=== PATIENT | male | born 1970 | race Caucasian/White ===

== ENCOUNTER → 2018-07-28 | Outpatient (CLI) | payer BC ==
--- NOTE | 2018-07-28 14:36 | REP ---
RIGHT ANKLE: FOUR VIEWS. HISTORY: Pain. FINDINGS: Four views of the right ankle show intact ankle mortise. There is diffuse soft tissue swelling medially and laterally as well as anteriorly. No fracture or erosive changes seen. There is some flattening of Bohler angle at the superior aspect of the calcaneus suggestive of an old calcaneal fracture. IMPRESSION: Diffuse swelling. No acute bony abnormality. Possible old calcaneal fracture with subsequent flattening. Electronically Signed by Chucho iEd MD 07/28/2018 08:42 P
--- NOTE | 2018-07-28 14:36 | REP ---
Right foot: Four views. History: Pain. Findings: Four views of the right foot demonstrate overall normal mineralization. Bones, joints, and soft tissues are unremarkable. Subtle flattening of the calcaneus is seen on lateral film raising question of an old calcaneal fracture. There is no evidence of tarsal coalition. Impression: Findings suggestive of old healed calcaneal fracture with subsequent flattening. Otherwise negative radiographs of the right foot. No acute bony abnormality. Electronically Signed by Chucho Eid MD 07/28/2018 08:43 P
== END ==
LOC: M WUC 12:36
PROVIDERS: ATTEND Physician Assistant
DX: M79.9 Soft tissue disorder, unspecified (principal)

== ENCOUNTER → 2020-03-16 | Outpatient (CLI) | payer BC ==
[2020-03-16 16:31] LABS: BLOOD UREA NITROGEN 8 MG/DL (7-18); CALCIUM LEVEL 9.3 MG/DL (8.5-10.1); CARBON DIOXIDE LEVEL 28 MEQ/L (21-32); CHLORIDE LEVEL 105 MEQ/L (98-107); CREATININE FOR GFR 1.06 MG/DL (0.70-1.30); GLOMERULAR FILTRATION RATE > 60.0 (>60); GLUCOSE, FASTING 91 MG/DL (70-100); POTASSIUM SERUM 4.5 MEQ/L (3.5-5.1); SODIUM LEVEL 138 MEQ/L (136-145); URIC ACID 6.8 MG/DL (3.5-7.2)
== END ==
LOC: M WUC 11:19
PROVIDERS: ATTEND Nurse Practitioner Family
DX: M10.072 Idiopathic gout, left ankle and foot (principal)

== ENCOUNTER → 2021-11-21 | Outpatient (CLI) | payer BC | LOC: M LABSMTC 10:03 | PROVIDERS: ATTEND Anesthesiology | DX: Z11.52 Encounter for screening for COVID-19 (principal) ==

== ENCOUNTER 2021-11-26 11:31 | Day surgery (SDC) | payer BC ==
[~2021-11-26] VITALS: Ht 170.2 cm; Wt 89.8 kg
[~2021-11-26 11:31] MED LIST: NS 1,000 ML IV ONE
[2021-11-26] MEDS ORDERED: LIDOCAINE 2% 100MG/5ML SDV (FOR ANES.) As Ordered ONE (12:11)
[2021-11-26] MEDS ORDERED: propofoL 200 MG/20 ML VIAL As Ordered ONE ×2 (12:11→12:54)
[2021-11-26 13:20] VITALS: BP 127/79
== END 2021-11-26 13:24 | disposition home or self-care (01) ==
LOC: M OPP 11:31
PROVIDERS: ATTEND Internal Medicine Gastroenterology
DX: Z12.11 Encounter for screening for malignant neoplasm of colon (principal); K64.0 First degree hemorrhoids; I10 Essential (primary) hypertension; Z79.02 Long term (current) use of antithrombotics/antiplatelets; Z79.899 Other long term (current) drug therapy

== ENCOUNTER → 2023-12-09 | Outpatient (CLI) | payer BC ==
[2023-12-09 15:01] LABS: BASO # 0.1 10^3/uL (0.0-0.2); BASO % 1.1 % (0.0-1.0); EOS # 0.4 10^3/uL (0.0-0.5); EOS % 5.9 % (0.0-3.0); HEMATOCRIT 45.9 % (42.0-52.0); HEMOGLOBIN 15.1 g/dl (13.5-17.5); LYMPH # 2.1 10^3/uL (1.5-5.0); LYMPH % 31.1 % (24.0-44.0); MEAN CORPUSCULAR HEMOGLOBIN 32.1 pg (27.0-33.0); MEAN CORPUSCULAR HGB CONC 32.9 g/dl (32.0-36.5); MEAN CORPUSCULAR VOLUME 97.7 fl (80.0-96.0); MONO # 0.6 10^3/uL (0.0-0.8); MONO % 9.2 % (2.0-8.0); NEUTROPHILS # 3.5 10^3/uL (1.5-8.5); NEUTROPHILS % 52.4 % (36.0-66.0); PLATELET COUNT, AUTOMATED 259 10^3/uL (150-450); WHITE BLOOD COUNT 6.7 10^3/uL (4.0-10.0)
[2023-12-09 15:35] LABS: ALBUMIN 3.7 G/DL (3.2-5.2); BILIRUBIN,DIRECT 0.3 MG/DL (<0.4); BILIRUBIN,TOTAL 0.7 MG/DL (0.3-1.2)
[2023-12-09 15:40] LABS: FERRITIN 316.4 NG/ML (10.5-307.3)
== END ==
LOC: M PLALAB 10:44
PROVIDERS: ATTEND Internal Medicine Hematology
DX: R79.89 Other specified abnormal findings of blood chemistry (principal)